=== PATIENT | male | born 1975 | race Caucasian/White ===

== ENCOUNTER 2018-06-24 05:46 | Day surgery (SDC) | payer BC ==
[2018-06-24] VITALS (15 sets, daily range): BP systolic 138–163; BP diastolic 83–106
[~2018-06-24] VITALS: Ht 177.8 cm; Wt 68.8 kg
[~2018-06-24 05:46] MED LIST: FAMO-128 PO; MYCO250C46 PO; TACR1CAP28 PO; ceFAZolin 2gm in dextrose, iso 100 ML IV ONE; famotidine 20mg tablet PO ONE; ringers solution, lacted 1,000 ML IV SCH
[2018-06-24] MEDS ORDERED: LIDOcaine 1% (10mg/ml) 2ml vial ONE (06:13)
[2018-06-24] MEDS ORDERED: heparin sodium, porcine/PF 100unit/ml 5ML syringe ONE (06:52)
[2018-06-24] MEDS ORDERED: BUPIVAcaine/PF 2.5mg/ml (0.25%) 10ml vial ONE (06:52)
[2018-06-24] MEDS ORDERED: ceFAZolin 1000mg inj ONE (06:52)
[2018-06-24 07:14] LABS: BASOPHILS % (AUTO) 0.6 % (0-1); EOSINOPHILS # (AUTO) 0.2 X10'3 (0-0.9); EOSINOPHILS % (AUTO) 2.7 % (0-6); HEMOGLOBIN 9.8 g/dl (14.0-17.9); LYMPHOCYTES # (AUTO) 1.5 X10'3 (1.1-4.8); MEAN CORPUSCULAR HEMOGLOBIN 27.4 PG (27.0-31.0); MEAN CORPUSCULAR HGB CONC 33.6 g/dL (33.0-36.5); MEAN CORPUSCULAR VOLUME 81.6 FL (78-98); MEAN PLATELET VOLUME 7.4 FL (7.4-10.4); MONOCYTES # (AUTO) 0.5 X10'3 (0-0.9); MONOCYTES % (AUTO) 6.5 % (2-12); NEUTROPHILS # (AUTO) 5.4 X10'3 (1.8-7.7); NEUTROPHILS % (AUTO) 70.2 % (42-75); PLATELET COUNT 254 X10'3 (140-440); RED BLOOD COUNT 3.56 X10'6 (4.70-6.10); RED CELL DISTRIBUTION WIDTH 15.4 % (11.5-14.5); WHITE BLOOD COUNT 7.6 X10'3 (4.5-11.0)
[2018-06-24] MEDS ORDERED: midazolam 2 mg/2 ml injection ONE (07:16)
[2018-06-24] MEDS ORDERED: fentaNYL/PF 50MCG/1 ML 2ML syringe ONE ×2 (07:16→08:04)
[2018-06-24 07:28] LABS: ALANINE AMINOTRANSFERASE 19 U/L (12-78); ALBUMIN 3.7 G/DL (3.4-5.0); ALBUMIN/GLOBULIN RATIO 1.2 (1.1-1.5); ALKALINE PHOSPHATASE 82 IU/L (46-116); ANION GAP 17 (8-16); ASPARTATE AMINO TRANSFERASE 11 U/L (10-37); BILIRUBIN,TOTAL 0.2 MG/DL (0.1-1.0); BLOOD UREA NITROGEN 82 MG/DL (7-18); BUN/CREATININE RATIO 11.2 (5.4-32.0); CHLORIDE 108 MMOL/L (99-107); CREATININE 7.32 MG/DL (0.60-1.10); GLUCOSE 91 MG/DL (70-104); POTASSIUM 4.3 MMOL/L (3.5-5.1); SODIUM 141 MMOL/L (135-145); TOTAL CARBON DIOXIDE 16.4 MMOL/L (24-32); TOTAL PROTEIN 6.8 G/DL (6.4-8.2); eGFR 8 ML/MIN
[2018-06-24] MEDS ORDERED: sevoflurane 250ml liquid IH ONE (07:37)
[2018-06-24] MEDS ORDERED: BUPIVAcaine/PF 2.5mg/ml (0.25%) 10ml vial IJ ONE (07:45)
[2018-06-24] MEDS ORDERED: ceFAZolin 1000mg inj IR ONE (07:46)
[2018-06-24] MEDS ORDERED: glycopyrrolate 0.2mg/ml inj ONE (08:16)
[2018-06-24] MEDS ORDERED: dexamethasone sod phosphate 4mg/ml inj. ONE (08:16)
[2018-06-24] MEDS ORDERED: rocuronium 10mg/ml inj IV ONE (08:16)
[2018-06-24] MEDS ORDERED: neostigmine methylsulfate 1 MG/ML 10ml vial ONE (08:16)
[2018-06-24] MEDS ORDERED: LIDOcaine 2% (20mg/ml) 5ml vial ONE (08:16)
[2018-06-24] MEDS ORDERED: propofol inj 20 ML IV ONE (08:16)
[2018-06-24] MEDS ORDERED: ondansetron/PF 4mg/2ml inj ONE (08:16)
[2018-06-24] MEDS ORDERED: bacitracin 15gm ointment TP ONE (08:21)
[2018-06-24] MEDS ORDERED: ringers solution, lacted 1,000 ML IV SCH (08:23)
[2018-06-24] MEDS ORDERED: meperidine/PF 25mg/ml syringe IV PRN ×3 (08:25)
[2018-06-24] MEDS ORDERED: proCHLORperazine 10 MG/2 ml inj IV PRN (08:25)
[2018-06-24] MEDS ORDERED: ondansetron/PF 4mg/2ml inj IV PRN (08:25)
[2018-06-24] MEDS ORDERED: morphine 4 MG/ML inj SYRINge IV PRN ×2 (08:25)
--- NOTE | 2018-06-24 08:40 | NUR ---
Received from OR via BED, accompanied by Anesthesiologist --DINORA- and report given by Anesthesiolgist. PATIENT A&OX4, DENIES PAIN, V/S WNL, NEUROVASCULAR CHECKS INTACT, 20G PIV LUE, SCD ON, PD CATH DRESSING TO ABDOMEN CDI
[2018-06-24] MEDS ORDERED: hydrALAZINE 20mg/ml inj. IV PRN (10:00)
[2018-06-24] MEDS ORDERED: hydrALAZINE 20mg/ml inj. IV ONE (10:06)
--- NOTE | 2018-06-24 10:40 | NUR ---
PATIENT A&OX4, DENIES PAIN, V/S WNL, NEUROVASCULAR CHECKS INTACT, 20G PIV LUE D/C, SCD OFF, PD CATH DRESSING TO ABDOMEN CDI. I HAVE REVIEWED D/C INSTRUCTIONS WITH PATIENT AND FAMILY AND THEY HAVE VERBALIZED UNDERSTANDING. PATIENT D/C HOME WITH ALL BELONGINGS AND FAMILY GAVE TRANSPORT HOME.
== END 2018-06-24 10:40 | disposition home or self-care (01) ==
LOC: PAS 05:46
PROVIDERS: ATTEND Surgery
DX: I12.9 Hypertensive chronic kidney disease with stage 1 through stage 4 chronic kidney disease, or unspecified chronic kidney disease (principal); N18.9 Chronic kidney disease, unspecified; D64.9 Anemia, unspecified; Z87.891 Personal history of nicotine dependence; F41.8 Other specified anxiety disorders; Z88.8 Allergy status to other drugs, medicaments and biological substances; Z79.899 Other long term (current) drug therapy
CPT/HCPCS: 36415; 49324; 80053; 82948; 85025; 93005; A6449; C1750; J0360; J0690; J1100; J1642; J2001; J2175; J2250; J2405; J2704; J2710; J3010; J3490; A7000; C1758; J7120

== ENCOUNTER 2019-05-12 09:41 | Outpatient (CLI) | payer BC ==
[~2019-05-12 09:41] MED LIST changes: -ceFAZolin 2gm in dextrose, iso 100 ML IV ONE; -famotidine 20mg tablet PO ONE; -ringers solution, lacted 1,000 ML IV SCH
== END 2019-05-12 23:59 | disposition home or self-care (01) ==
LOC: CARD DIAG 09:41
DX: Z01.810 Encounter for preprocedural cardiovascular examination (principal); Z94.0 Kidney transplant status
CPT/HCPCS: 93005